=== PATIENT | male | born 1975 | race Hispanic/Latino ===

== ENCOUNTER 2018-01-08 11:55 | Emergency (ER) | payer OTHER ==
[2018-01-08 12:02] VITALS: BP 136/90; PULSE 87; RESP 19; TEMP 99.1; O2SAT 95
[2018-01-08] MEDS ORDERED: Naproxen 550 mg Tab PO STA (12:33)
[2018-01-08] MEDS ORDERED: Naproxen 550 mg Tab PO ONE (12:41)
--- NOTE | 2018-01-08 13:10 | C.PDOC ---
History Of Present Illness 42 year old male with a history of hypertension presents to the ED for evaluation of worsening left knee pain that began last night. No prior knee surgery. Denies fever, numbness, weakness, trauma, injury, ankle pain, and any other associated symptoms. Time Seen by Provider: 01/08/18 12:26 Chief Complaint (Nursing): Lower Extremity Problem/Injury History Per: Patient History/Exam Limitations: no limitations Onset/Duration Of Symptoms: Hrs Current Symptoms Are (Timing): Still Present Past Medical History Reviewed: Historical Data, Nursing Documentation, Vital Signs Vital Signs: Last Vital Signs Temp 99.1 F 01/08/18 11:59 Pulse 87 01/08/18 11:59 Resp 19 01/08/18 11:59 BP 136/90 01/08/18 11:59 Pulse Ox 95 01/08/18 11:59 Family History: States: Unknown Family Hx - Social History Hx Alcohol Use: Yes Hx Substance Use: No - Immunization History Hx Tetanus Toxoid Vaccination: No Hx Influenza Vaccination: No Hx Pneumococcal Vaccination: No Review Of Systems Constitutional: Negative for: Fever, Other (trauma. ) Gastrointestinal: Negative for: Abdominal Pain Genitourinary: Negative for: Dysuria Musculoskeletal: Positive for: Leg Pain (left knee pain.). Negative for: Other (ankle pain.) Neurological: Negative for: Weakness, Numbness, Incoordination Physical Exam - Physical Exam Appears: Well, Non-toxic, No Acute Distress Skin: Normal Color, Warm, Dry, No Rash Head: Atraumatic, Normacephalic Eye(s): bilateral: Normal Inspection, PERRL, EOMI Oral Mucosa: Moist Neck: Normal ROM Extremity: Normal ROM (of the left extremity. ), No Tenderness, No Calf Tenderness, Capillary Refill (less than 2 seconds. ), No Deformity, Swelling (mild swelling to the lateral aspect of the left knee. ) Extremity: Bilateral: Normal Color And Temperature Pulses: Left Dorsalis Pedis: Normal, Right Dorsalis Pedis: Normal Neurological/Psych: Oriented x3, Normal Speech, Normal Motor, Normal Sensation Gait: Steady ED Course And Treatment O2 Sat by Pulse Oximetry: 95 (RA) Pulse Ox Interpretation: Normal - Other Rad LT Knee x-ray X-Ray: Viewed By Me, Read By Radiologist Interpretation: FINDINGS: BONES: Normal. No fracture. JOINTS: Normal. No osteoarthritis. JOINT EFFUSION: None. OTHER FINDINGS: None. IMPRESSION: No evidence of acute fracture or dislocation. Medical Decision Making Medical Decision Making: Plan: -LT Knee x-ray Naproxen Xrays are negative. On re-exam, the patient reports improvement of symptoms. Patient is ambulatory in the ED with ease and steady gait. Disposition - Disposition Referrals: Meera Luciano MD [Staff Provider] - Disposition: HOME/ ROUTINE Disposition Time: 13:33 Condition: STABLE Additional Instructions: Follow up with the medical doctor within 1-2 days. Return if worsened. Prescriptions: Naproxen [Naprosyn] 500 mg PO BID #20 tab Instructions: Knee Pain Forms: [employer] (Greek) - Clinical Impression Clinical Impression: Joint pain, Knee pain - PA / SWATCH [employer]ER / Resident Statement MD/DO has reviewed & agrees with the documentation as recorded. - Scribe Statement The provider has reviewed the documentation as recorded by the Scribe (Azeb Dykes) All medical record entries made by the Scribe were at my direction and personally dictated by me. I have reviewed the chart and agree that the record accurately reflects my personal performance of the history, physical exam, medical decision making, and the department course for this patient. I have also personally directed, reviewed, and agree with the discharge instructions and disposition.
--- NOTE | 2018-01-08 13:17 | RAD ---
Date of service: 01/08/2018 PROCEDURE: Left Knee Radiographs. HISTORY: Pain. COMPARISON: None. FINDINGS: BONES: Normal. No fracture. JOINTS: Normal. No osteoarthritis. JOINT EFFUSION: None. OTHER FINDINGS: None. IMPRESSION: No evidence of acute fracture or dislocation.
== END 2018-01-08 13:50 | disposition home or self-care (01) ==
LOC: C.ER 11:55
DX: M25.562 Pain in left knee (principal)